=== PATIENT | female | born 1970 | race Caucasian/White ===

== ENCOUNTER 2017-03-23 21:12 | Emergency (ER) | payer OTHER ==
[~2017-03-23] VITALS: Ht 160 cm; Wt 52.2 kg
[2017-03-23] MEDS ORDERED: BUSPIRONE HCL30 MG PO (21:33)
== END 2017-03-24 00:14 | disposition home or self-care (01) ==
LOC: ED 21:12
DX: S06.0X0A Concussion without loss of consciousness, initial encounter (principal); T14.8XXA Other injury of unspecified body region, initial encounter; F41.9 Anxiety disorder, unspecified; F17.200 Nicotine dependence, unspecified, uncomplicated; Z88.8 Allergy status to other drugs, medicaments and biological substances; Z79.899 Other long term (current) drug therapy; Y04.2XXA Assault by strike against or bumped into by another person, initial encounter
CPT/HCPCS: 70450; 72125; 99284

== ENCOUNTER 2017-09-15 16:24 | Emergency (ER) | payer OTHER ==
[~2017-09-15] VITALS: Ht 162.6 cm; Wt 49.9 kg
[~2017-09-15 16:24] MED LIST: BUSPIRONE HCL30 MG PO
[2017-09-15] MEDS ORDERED: KEFLEX500 MG PO (18:34)
== END 2017-09-15 18:51 | disposition home or self-care (01) ==
LOC: ED 16:24
DX: S01.81XA Laceration without foreign body of other part of head, initial encounter (principal); F17.200 Nicotine dependence, unspecified, uncomplicated; Z88.8 Allergy status to other drugs, medicaments and biological substances
CPT/HCPCS: 12002; 70450; 90471; 90715; 99283

== ENCOUNTER 2019-10-18 14:26 | Emergency (ER) | payer OTHER ==
[~2019-10-18] VITALS: Ht 162.6 cm; Wt 49.9 kg
[~2019-10-18 14:26] MED LIST changes: +KEFLEX500 MG PO
--- OUTSIDE RECORDS SUMMARY | 2019-10-18 14:28 | XMS ---
PreManage Notification: MAGDALENA MONZON [employer] Events No recent Security Events currently on file CRITERIA MET - [facility] Guidelines CARE PROVIDERS ANA MONTANEZ Nurse Practitioner Current PHONE: [phone] Guidelines Source: [employer] [facility] Guidelines Date: 08/10/2019 Care Coordination: Historically has received mental health services with [facility].\ T\nbsp; [facility]:\T\nbsp; [place] Office: [phone] E.D. VISIT COUNT (12 MO.) 1 [facility] [place] 1 [facility] 1 JOELLE Soria TOTAL 3 NOTE: Visits indicate total known visits. ED/UCC VISIT TRACKING (12 MO.) 10/18/2019 14:27 [facility] [place] TYPE: Emergency COMPLAINT: - WEAKNESS 08/09/2019 20:[facility] TYPE: Emergency DIAGNOSES: - Anxiety; Hypoglycemia - Alcohol dependence with withdrawal delirium - Altered Mental Status 05/09/2019 11:02 [facility] [place] TYPE: Emergency DIAGNOSES: - HEAD INJURY, EYE INJURY, ABDOMINAL PAIN INPATIENT VISIT TRACKING (12 MO.) 08/09/2019 20:49 [facility] [place] [facility] TYPE: Progressive Care DIAGNOSES: - Encephalopathy, unspecified - Alcohol dependence with withdrawal delirium - Tobacco use - Takotsubo syndrome - Acute systolic (congestive) heart failure [email or web address]
[2019-10-18] MEDS ORDERED: AMITRIPTYLINE H25 MG PO (14:50)
[2019-10-18] MEDS ORDERED: LISINOPRIL2.5 MG PO (14:50)
[2019-10-18] MEDS ORDERED: HYDROXYZINE PAM25 MG PO (14:51)
== END 2019-10-18 15:35 | disposition home or self-care (01) ==
LOC: ED 14:26
DX: F10.239 Alcohol dependence with withdrawal, unspecified (principal); F41.9 Anxiety disorder, unspecified; G47.00 Insomnia, unspecified; F17.210 Nicotine dependence, cigarettes, uncomplicated; Z88.8 Allergy status to other drugs, medicaments and biological substances; Z79.899 Other long term (current) drug therapy
CPT/HCPCS: 99284